=== PATIENT | female | born 1960 | race Caucasian/White ===

== ENCOUNTER 2022-03-22 11:04 | Emergency (ER) | payer OTHER ==
[2022-03-22] MEDS ORDERED: Acetaminophen/oxyCODONE 325-5 MG Tab PO STA (11:07)
[2022-03-22] MEDS ORDERED: Ketorolac 30 MG/ML SDV IM ONE (11:07)
== END 2022-03-22 12:15 | disposition home or self-care (01) ==
LOC: FB.ED 11:04
DX: S76.012A Strain of muscle, fascia and tendon of left hip, initial encounter (principal); X50.0XXA Overexertion from strenuous movement or load, initial encounter
CPT/HCPCS: 73502-LT; 96372; 99283; 99283-25; A9270-GY; J1885